=== PATIENT | male | born 1990 | race African-American/Black ===

== ENCOUNTER 2017-03-09 20:55 | Emergency (ER) | payer SELFPAY ==
[~2017-03-09] VITALS: Ht 188 cm; Wt 70.7 kg
[2017-03-09 21:00] VITALS: BP 111/79; PULSE 108; RESP 16; TEMP 98.2; O2SAT 96
[2017-03-09] MEDS ORDERED: PENI250T59 PO (21:44)
[2017-03-09] MEDS ORDERED: IBUP-232 PO (21:44)
--- NOTE | 2017-03-09 21:44 | PD ---
HPI Chief Complaint: Oral / Dental Pain or Problem Time Seen by Provider: 21:34 Travel History International Travel<30 days: No Contact w/Intl Traveler<30days: No Traveled to known affect area: No History of Present Illness HPI 26-year-old male history of HIV presents to the emergency room for evaluation of left upper dental pain for the past several months. It started after he chipped his tooth while eating. States the pain worsened today. Pain is exacerbated when air passes over the tooth. He has been taking Aleve without significant relief in symptoms. Patient reports occasional strange taste in his mouth but denies pus. He has tried several times to make an appointment with dentist but they only ever offer consultation and will not treat him because of his history of HIV. He denies fever, chills, nausea, and vomiting. States his viral load is just under undetectable. He does not know his CD4 count. Patient is not currently on HIV medications because he just moved down here from [place] and is trying to establish with a primary care physician. PFSH Past Medical History Medical other: Yes (HIV) Tetanus Vaccination: < 5 Years Influenza Vaccination: Yes Past Surgical History Surgical History: No Previous Surgery Social History Alcohol Use: Yes (Occ.) Tobacco Use: Yes (1 pack every 3 days) Substance Use: Yes (Marijuana daily ) Allergies-Medications (Allergen,Severity, Reaction): Coded Allergies: Morphine (Verified Allergy, Severe, Itching, redness, 03/09/17) Reported Meds & Prescriptions Reported Meds & Active Scripts Active No Active Prescriptions or Reported Medications Review of Systems Except as stated in HPI: all other systems reviewed are Neg Physical Exam Narrative GENERAL: Well-nourished, well-developed male in no acute distress. Afebrile. Ambulatory. SKIN: Focused skin assessment warm/dry. HEAD: Normocephalic. EYES: No scleral icterus. No injection or drainage. NECK: Supple, trachea midline. No JVD or lymphadenopathy. DENTAL: No loose teeth. No malocclusion. Tooth #14 has a large chip in the center with exposed. There is no drainage, erythema, or obvious abscess on exam. No submental, submandibular, or buccal induration. CARDIOVASCULAR: Regular rate and rhythm without murmurs, gallops, or rubs. RESPIRATORY: Breath sounds equal bilaterally. No accessory muscle use. Data Data Last Documented VS Vital Signs Date Time Temp Pulse Resp B/P Pulse Ox O2 Delivery O2 Flow Rate FiO2 03/09/17 21:00 98.2 108 16 111/79 96 MDM Medical Decision Making Medical Screen Exam Complete: Yes Emergency Medical Condition: Yes Medical Record Reviewed: Yes Differential Diagnosis Dental pain versus gingivitis versus fractured tooth versus dental abscess Narrative Course 26-year-old male with history of HIV presents to the emergency room for evaluation of left upper dental pain that started today. Patient has history of dental pain after his tooth fractured several months ago. Physical exam reveals tooth #14 has a large chip in the center with exposed. There is no drainage, erythema, or obvious abscess on exam. No submental, submandibular, or buccal induration. There is no evidence of infection however given acute worsening of symptoms, patient will be treated conservatively with antibiotics. He was told to follow up with a dentist and return to emergency room for worsening symptoms. He understands and agrees to plan. Diagnosis Primary Impression: Pain, dental Referrals: [facility] Dept. Patient Instructions: General Instructions, Toothache (ED) Additional Instructions: Rest and drink plenty of fluids. Penicillin as directed, until gone. Ibuprofen with food as directed, as needed for pain. Follow-up with a dentist. Return to the emergency room for worsening symptoms. Med/Other Pt SpecificInfo: Prescription(s) given Scripts No Active Prescriptions or Reported Meds Disposition: 01 DISCHARGE HOME Condition: Stable Sarah Ahmadi March 09, 2017 21:44
[2017-03-09] MEDS ORDERED: traMADol HCL 50 MG TAB PO ONE (21:45)
== END 2017-03-09 21:50 | disposition home or self-care (01) ==
LOC: PHEFT 20:55
DX: K08.89 Other specified disorders of teeth and supporting structures (principal); Z21 Asymptomatic human immunodeficiency virus [HIV] infection status; F17.200 Nicotine dependence, unspecified, uncomplicated
CPT/HCPCS: 99283